=== PATIENT | female | born 2000 | race Caucasian/White ===

== ENCOUNTER 2020-05-22 17:11 | Emergency (ER) | payer SELFPAY ==
[2020-05-22 17:25] VITALS: BP 112/76; PULSE 98; RESP 16; TEMP 36.4; O2SAT 99; BMI 21.9
[2020-05-22 18:00] LABS: Add Urine Microscopic? NO
[2020-05-22 18:15] LABS: Bilirubin Urine Neg (Negative); Blood Urine Neg (Negative); Glucose Urine UA Norm (Normal); Ketones Urine Negative (Negative); Leukocyte Esterase Urine Negative (Negative); Nitrate Urine Negative (Negative); Protein Urine Neg (Negative); Urine Appearance Clear (CLEAR); Urine Color Yellow (Yellow); Urobilinogen Urine Norm (Negative); pH Urine 7 (5-7)
[2020-05-22 18:35] LABS: Basophils # 0.1 10^3/uL (0.0-0.1); Basophils % 0.6 %; Eosinophils # 0.2 10^3/uL (0.0-0.8); Hematocrit 37.9 % (37.0-47.0); Hemoglobin 12.1 g/dL (11.5-15.3); Lymphocytes # 2.5 10^3/uL (1.5-6.5); Lymphocytes % 25.7 %; Mean Corpuscular HGB Conc 31.9 g/dL (30.0-36.0); Mean Corpuscular Hemoglobin 30.2 pg (28.0-34.0); Mean Corpuscular Volume 94.5 fL (81-99); Mean Platelet Volume 10.2 fL (7.4-10.4); Monocytes # 0.8 10^3/uL (0.2-0.9); Monocytes % 8.4 %; Nucleated Red Blood Cells % 0 %; Platelet Count 297 10^3/cmm (130-400); Red Blood Count 4.01 10^6/uL (4.1-5.3); Red Cell Distribution Width 13.8 % (12.1-15.1); White Blood Count 9.7 10^3/uL (4.5-13.0)
[2020-05-22 18:53] LABS: Alanine Aminotransferase 18 U/L (0-33); Albumin Level 4.5 g/dL (3.5-5.2); Alkaline Phosphatase 72 IU/L (35-105); Anion Gap 12.7 (5-19); Aspartate Amino Transferase 18 U/L (0-32); Blood Urea Nitrogen 8 mg/dL (6-20); Calcium 9.2 mg/dL (8.5-10.5); Carbon Dioxide 26 mmol/L (22-29); Chloride 105 mmol/L (98-107); Globulin 2.6 g/dL (1.3-4.6); Glomerular Filtration Rate 127.5 mL/min (90-130); Glucose 110 mg/dL (65-115); HCG, Serum Qual Negative (Negative); Lipase 25 U/L (13-60); Osmolality Calculated 289 mOsm/kg (285-295); Potassium 3.7 mmol/L (3.5-5.1); Sodium 140 mmol/L (136-145); Total Bilirubin 0.2 mg/dL (0.15-1.2); Total Protein 7.1 g/dL (6.6-8.7)
[2020-05-22 18:56] VITALS: BP 118/67; PULSE 87; RESP 18; O2SAT 98
[2020-05-22] MEDS: sodium chloride 0.9% 1,000 ML 999 ML IV (18:58)
[2020-05-22] MEDS: lidocaine 2% viscous 15 ML, aluminum-mag hydrox-simethicon 30 ML, sucralfate oral liq 1 GM PO (18:58)
[2020-05-22] MEDS: pantoprazole 40 mg SDV IVP (18:58)
[2020-05-22] MEDS: ondansetron 2 mg/ML SDV 2 mL 4 MG IVP (18:58)
--- NOTE | 2020-05-22 19:09 | CTR_ITS ---
PROCEDURE INFORMATION: Exam: CT Abdomen And Pelvis With Contrast Exam date and time: 05/22/2020 7:29 PM Age: 19 years old Clinical indication: Nausea and vomiting; Prior surgery; Surgery date: 6+ months; Surgery type: Gb; Patient HX: Epigastric pain w n/v - hematemesis TECHNIQUE: Imaging protocol: Computed tomography of the abdomen and pelvis with intravenous contrast. Sagittal and coronal reformatted images were created and reviewed. Radiation optimization: All CT scans at this facility use at least one of these dose optimization techniques: automated exposure control; mA and/or kV adjustment per patient size (includes targeted exams where dose is matched to clinical indication); or iterative reconstruction. Contrast material: OMNI 300; Contrast volume: 75 ml; Contrast route: INTRAVENOUS (IV); COMPARISON: No relevant prior studies available. RADIATION DOSE METRICS: Total DLP (mGy-cm): 266.12 FINDINGS: Lungs: Visualized lungs are clear. Pleural space: No pleural effusion. Heart: Visualized portions of the heart are unremarkable. Liver: The liver is unremarkable. Gallbladder and bile ducts: Patient has had a previous cholecystectomy. No biliary ductal dilatation. Pancreas: The pancreas is unremarkable. No pancreatic ductal dilatation. Spleen: The spleen is unremarkable. Adrenals: The right and left adrenal glands are unremarkable. Kidneys and ureters: The right and left kidneys are unremarkable. The right and left ureters are unremarkable. Stomach and bowel: Fluid within the small bowel without evidence of bowel wall thickening. No acute abnormality in the colon. Appendix: The appendix is visualized and is unremarkable. No findings to suggest acute appendicitis. Intraperitoneal space: Small amount of free fluid in the pelvis. No free intraperitoneal air. No loculated fluid collections to suggest an abscess. Vasculature: No evidence for aortic aneurysm or aortic dissection. Hepatic veins are poorly opacified and not well-visualized. Portal veins, splenic vein, and SMV are patent. 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 Lymph nodes: No lymphadenopathy. Urinary bladder: Diffuse, mild wall thickening of the bladder. Reproductive: The uterus, right ovary, and left ovary are unremarkable. Bones/joints: No acute fracture. Soft tissues: The extra-abdominal soft tissues are unremarkable. Patient has bilateral nipple piercings. CT/CT abdomen pelvis w con* [id number] IMPRESSION: 1. Fluid within the small bowel without evidence of bowel wall thickening. This may reflect viral gastroenteritis in the appropriate clinical situation. 2. Small amount of free fluid in the pelvis. 3. Diffuse, mild wall thickening of the bladder. In the correct clinical setting, this may suggest cystitis. Recommend correlation with laboratory findings. 4. Incidental/nonacute findings are listed in the report. Radiation Dose CTDIVOL = (mGy): DLP = 266.12 (mGy-cm)
[2020-05-22] MEDS: iohexol 300 mg/mL 100 mL Btl IV (19:38)
[2020-05-22 19:56] VITALS: BP 124/78; PULSE 70; RESP 18; O2SAT 99
[2020-05-22 20:00] VITALS: BP 109/80; PULSE 88; RESP 18; O2SAT 100
--- NOTE | 2020-05-22 20:37 | ED_ITS ---
HPI - Nausea/Vomiting/Diarrhea General: Chief complaint: Nausea/Vomiting/Diarrhea Stated complaint: vomiting blood Time Seen by Provider: 05/22/20 17:45 Source: patient Mode of arrival: ambulatory History of Present Illness: HPI Narrative: 19-year-old female patient with a prior history of gastritis and stomach ulcers presents to the emergency department with complaints of hematemesis. Symptoms started earlier today with epigastric abdominal pain. She says she occasionally takes NSAIDs. She is not on any medications for gastritis currently. She denies dizziness, or presyncope. No blood in her stool. MD elicited complaint: nausea and vomiting Onset (ago): hour(s) (8) Description of vomiting: food contents and bloody Associated nausea: No Associated abdominal pain: Yes Location of pain: Epigastric Severity: moderate Quality: other (burning) Exacerbating factors: none Associated symtoms: Denies altered mental status, anxiety, bloating, change in vision, chest pain, cough, diaphoresis, decreased urine output, dizziness, dysuria, epistaxis, fatigue, fecal incontinence, fevers/chills, headache(s), anorexia, malaise, myalgias, nausea, numbness, palpitations, rash, short of breath, syncope, tenesmus, tinnitus or weakness Review of Systems General: Reports: 10 or more systems reviewed and unremarkable except in HPI and below Const: Denies: fatigue, malaise or diaphoresis Eyes: Denies: change in vision ENMT: Denies: tinnitus or epistaxis Card: Denies: chest pain, palpitations or syncope Resp: Denies: dyspnea, productive cough or non-productive cough GI: Denies: nausea, bloating or fecal incontinence : Denies: dysuria Musc: Denies: neck pain, back pain or extremity swelling Skin/Breast: Denies: rash, pruritus or erythema Neuro: Denies: headache(s) or dizziness Psych: Denies: anxiety Endo: Denies: polyuria, polydipsia or tired all the time PFSH ED PFSH: Social History (Reviewed 05/22/20 @ 23:06 by Fouzia Bishop MD, [facility] [place]) Smoking and tobacco status: current every day smoker cigarettes Packs smoked per day: 1 Alcohol intake: current Alcohol intake frequency: holidays/special occasions only Substance/Drug Use: never Female Reproductive History: Date of last menstrual period: 05/21/20 Physical Exam Const: COMMON NORMALS: no acute distress, average body habitus, patient oriented x3, no limitations, healthy appearing, alert and well nourished EXAM LIMITATIONS: no altered mental status HENMT: COMMON NORMALS: normocephalic, atraumatic and moist oral mucous membranes HEAD & SCALP: normocephalic and atraumatic Neck/C-Spine: COMMON NORMALS: no meningeal signs and no JVD Resp: COMMON NORMALS: normal respiratory effort, No retractions, No use of accessory muscles, clear to auscultation bilaterally and percussion normal AUSCULTATION: clear to auscultation bilaterally PERCUSSION: percussion normal Cardio: COMMON NORMALS: no JVD, regular rate, regular rhythm, S1 normal heart sound present, S2 normal heart sound present, No gallops present (Cardio), No clicks present (Cardio), No murmurs present (Cardio), No rub (Cardio) and Peripheral pulses 2+ throughout RATE: regular rate RHYTHM: regular rhythm HEART SOUNDS: S1 normal heart sound present and S2 normal heart sound present PERIPHERAL PULSES: Peripheral pulses 2+ throughout GI: COMMON NORMALS: Normal to inspection, nondistended, normoactive bowel sounds present, Soft to palpation, No hepatosplenomegaly present, no masses and no bruits PALPATION: Yes Soft to palpation, Yes Tenderness to palpation present (GI) (epigastric.) and Yes No hepatosplenomegaly present Extremity: COMMON NORMALS: normal to inspection, full ROM, capillary refill normal, no calf tenderness and no pedal edema Neuro: COMMON NORMALS: patient oriented x3 SENSORIUM/ORIENTATION: Yes alert MENINGEAL SIGNS: Yes no meningeal signs Skin: COMMON NORMALS: no rashes or lesions noted, no wounds, turgor normal, no jaundice, no petechiae and no mottling GENERAL SKIN EXAM: no rashes or lesions noted and turgor normal Course Reevaluation(s): Reevaluation #1: Discussed her labs and imaging findings with her. Negative for acute findings. Hemoglobin is stable and normal. Since she has been of antacids will prescribe antacids for her while she follows up with a colored leather setter. Patient states that she is no longer lives in [place] and lives in [place] now so she would follow-up with a provider in [place]. She voiced understanding and is in agreement with my plan. Time: 21:08 Vital Signs: Vital signs: Vital Signs Temperature 97.5 F L 05/22/20 17:25 Pulse Rate 88 05/22/20 22:18 Respiratory Rate 18 05/22/20 22:18 Blood Pressure 112/74 05/22/20 22:18 Pulse Oximetry 100 05/22/20 22:18 MDM - Nausea/Vomiting/Diarrhea MDM Narrative: Medical decision making narrative: Patient with symptoms compatible with hemorrhagic gastritis. Patient had only one episode of vomiting in the emergency department, hemoglobin stable, labs unremarkable, CT scan unremarkable. She is discharged home with medications for gastritis/stomach ulcers. She will follow-up with her primary care provider and gastroen terologist. Medical Records: Attestation: I reviewed the patient's medical records. Lab Data: Attestation: I reviewed the patient's lab results. Labs: Lab Results 05/22/20 05/22/20 05/22/20 Range/Units 17:46 18:20 18:20 WBC 9.7 (4.5-13.0) 10^3/ uL RBC 4.01 L (4.1-5.3) 10^6/u L Hgb 12.1 (11.5-15.3) g/dL Hct 37.9 (37.0-47.0) % MCV 94.5 (81-99) fL MCH 30.2 (28.0-34.0) pg MCHC 31.9 (30.0-36.0) g/dL RDW 13.8 (12.1-15.1) % Plt Count 297 (130-400) 10^3/c mm MPV 10.2 (7.4-10.4) fL Neut % (Auto) 63.0 % Lymph % (Auto) 25.7 % [place] % (Auto) 8.4 % Eos % (Auto) 2.0 % Baso % (Auto) 0.6 % Neut # (Auto) 6.10 (1.8-8.0) 10^3/u L Lymph # (Auto) 2.5 (1.5-6.5) 10^3/u L [place] # (Auto) 0.8 (0.2-0.9) 10^3/u L Eos # (Auto) 0.2 (0.0-0.8) 10^3/u L Baso # (Auto) 0.1 (0.0-0.1) 10^3/u L Nucleated RBC % (a uto) 0 % Nucleated RBCs # 0.0 /100WBC Sodium 140 (136-145) mmol/L Potassium 3.7 (3.5-5.1) mmol/L Chloride 105 (98-107) mmol/L Carbon Dioxide 26 (22-29) mmol/L Anion Gap 12.7 (5-19) BUN 8 (6-20) mg/dL Creatinine 0.6 (0.5-0.9) mg/dL GFR Calculation 127.5 (90-130) mL/min Glucose 110 (65-115) mg/dL Calculated Osmolal ity 289 (285-295) mOsm/k g Calcium 9.2 (8.5-10.5) mg/dL Total Bilirubin 0.2 (0.15-1.2) mg/dL AST 18 (0-32) U/L ALT 18 (0-33) U/L Alkaline Phosphata se 72 (35-105) IU/L Total Protein 7.1 (6.6-8.7) g/dL Albumin 4.5 (3.5-5.2) g/dL Globulin 2.6 (1.3-4.6) g/dL Lipase 25 (13-60) U/L HCG, Qual (Negative) Urine Color Yellow (Yellow) Urine Appearance Clear (CLEAR) Urine pH 7 (5-7) Ur Specific Gravit y 1.010 (1.005-1.030) Urine Protein Neg (Negative) Urine Glucose (UA) Norm (Normal) Urine Ketones Negative (Negative) Urine Blood Neg (Negative) Urine Nitrate Negative (Negative) Urine Bilirubin Neg (Negative) Urine Urobilinogen Norm (Negative) mg/dL Ur Leukocyte Indira ase Negative (Negative) 05/22/20 Range/Units 18:20 WBC (4.5-13.0) 10^3/ uL RBC (4.1-5.3) 10^6/u L Hgb (11.5-15.3) g/dL Hct (37.0-47.0) % MCV (81-99) fL MCH (28.0-34.0) pg MCHC (30.0-36.0) g/dL RDW (12.1-15.1) % Plt Count (130-400) 10^3/c mm MPV (7.4-10.4) fL Neut % (Auto) % Lymph % (Auto) % [place] % (Auto) % Eos % (Auto) % Baso % (Auto) % Neut # (Auto) (1.8-8.0) 10^3/u L Lymph # (Auto) (1.5-6.5) 10^3/u L [place] # (Auto) (0.2-0.9) 10^3/u L Eos # (Auto) (0.0-0.8) 10^3/u L Baso # (Auto) (0.0-0.1) 10^3/u L Nucleated RBC % (a uto) % Nucleated RBCs # /100WBC Sodium (136-145) mmol/L Potassium (3.5-5.1) mmol/L Chloride (98-107) mmol/L Carbon Dioxide (22-29) mmol/L Anion Gap (5-19) BUN (6-20) mg/dL Creatinine (0.5-0.9) mg/dL GFR Calculation (90-130) mL/min Glucose (65-115) mg/dL Calculated Osmolal ity (285-295) mOsm/k g Calcium (8.5-10.5) mg/dL Total Bilirubin (0.15-1.2) mg/dL AST (0-32) U/L ALT (0-33) U/L Alkaline Phosphata se (35-105) IU/L Total Protein (6.6-8.7) g/dL Albumin (3.5-5.2) g/dL Globulin (1.3-4.6) g/dL Lipase (13-60) U/L HCG, Qual Negative (Negative) Urine Color (Yellow) Urine Appearance (CLEAR) Urine pH (5-7) Ur Specific Gravit y (1.005-1.030) Urine Protein (Negative) Urine Glucose (UA) (Normal) Urine Ketones (Negative) Urine Blood (Negative) Urine Nitrate (Negative) Urine Bilirubin (Negative) Urine Urobilinogen (Negative) mg/dL Ur Leukocyte Indira ase (Negative) Imaging Data^: CT Abd/Pel: Attestation: I personally reviewed and interpreted this imaging study as fol lows: Radiologist's impression: [facility] [address] [place] [address] CT Scan Report Signed Patient: Js Hutchinson #: [id number] : 2000Acct#:[id number] Age/Sex: 19 / FADM Date: 05/22/20 Loc: ERRoom/Bed: Attending Dr: Ordering Provider/Ordering MD: Fouzia Bishop MD, [facility] [place] Date of Service: 05/22/20 Procedure(s): CT abdomen pelvis w con* [id number] Accession Number(s): [id number] Report Number: [id number] PROCEDURE INFORMATION: Exam: CT Abdomen And Pelvis With Contrast Exam date and time: 05/22/2020 7:29 PM Age: 19 years old Clinical indication: Nausea and vomiting; Prior surgery; Surgery date: 6+ months; Surgery type: Gb; Patient HX: Epigastric pain w n/v - hematemesis TECHNIQUE: Imaging protocol: Computed tomography of the abdomen and pelvis with intravenous contrast. Sagittal and coronal reformatted images were created and reviewed. Radiation optimization: All CT scans at this facility use at least one of these dose optimization techniques: automated exposure control; mA and/or kV adjustment per patient size (includes targeted exams where dose is matched to clinical indication); or iterative reconstruction. Contrast material: OMNI 300; Contrast volume: 75 ml; Contrast route: INTRAVENOUS (IV); COMPARISON: No relevant prior studies available. RADIATION DOSE METRICS: Total DLP (mGy-cm): 266.12 FINDINGS: Lungs: Visualized lungs are clear. Pleural space: No pleural effusion. Heart: Visualized portions of the heart are unremarkable. Liver: The liver is unremarkable. Gallbladder and bile ducts: Patient has had a previous cholecystectomy. No biliary ductal dilatation. Pancreas: The pancreas is unremarkable. No pancreatic ductal dilatation. Spleen: The spleen is unremarkable. Adrenals: The right and left adrenal glands are unremarkable. Kidneys and ureters: The right and left kidneys are unremarkable. The right and left ureters are unremarkable. Stomach and bowel: Fluid within the small bowel without evidence of bowel wall thickening. No acute abnormality in the colon. Appendix: The appendix is visualized and is unremarkable. No findings to suggest acute appendicitis. Intraperitoneal space: Small amount of free fluid in the pelvis. No free intraperitoneal air. No loculated fluid collections to suggest an abscess. Vasculature: No evidence for aortic aneurysm or aortic dissection. Hepatic veins are poorly opacified and not well-visualized. Portal veins, splenic vein, and SMV are patent. 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 Lymph nodes: No lymphadenopathy. Urinary bladder: Diffuse, mild wall thickening of the bladder. Reproductive: The uterus, right ovary, and left ovary are unremarkable. Bones/joints: No acute fracture. Soft tissues: The extra-abdominal soft tissues are unremarkable. Patient has bilateral nipple piercings. CT/CT abdomen pelvis w con* [id number] IMPRESSION: 1. Fluid within the small bowel without evidence of bowel wall thickening. This may reflect viral gastroenteritis in the appropriate clinical situation. 2. Small amount of free fluid in the pelvis. 3. Diffuse, mild wall thickening of the bladder. In the correct clinical setting, this may suggest cystitis. Recommend correlation with laboratory findings. 4. Incidental/nonacute findings are listed in the report. Radiation Dose CTDIVOL = (mGy): DLP = 266.12 (mGy-cm) Dictated By:Estela Nesbitt MD Signed By:Estela Nesbittigned Date/Time:05/22/202012 DD/ 10 Discharge Plan Discharge Patient Disposition: Home Clinical Impression: Gastritis Qualifiers: Gastritis type: unspecified gastritis Chronicity: acute Gastritis bleeding: with bleeding Qualified Code(s): K29.01 - Acute gastritis with bleeding Condition: Stable Prescriptions: New omeprazole 40 mg capsule,delayed release(DR/EC) 40 mg PO DAILY 28 Days RF: 0 Pepcid 40 mg tablet 40 mg PO BID 30 Days Qty: 60 RF: 0 sucralfate 100 mg/mL suspension 1 gm PO BID 28 Days Qty: 560 RF: 0 Zofran 4 mg tablet 4 mg PO Q8H PRN (Reason: nausea and vomiting) 14 Days Qty: 30 RF: 0 Discharge Orders: Discharge Order (Routine); Ordered 05/22/20 Ordered By: Fouzia Bishop Discharge Activity: Increase activity as tolerated Patient Instructions: Gastritis (ED), Diet for Ulcers and Gastritis (ED) Activity Restrictions/Additional Instructions: Return for any new or worsening symptoms. Follow-up with your primary care provider within 3 days. Call the office of a surgeon or colored leather setter when you get back home to schedule an appointment to be seen as soon as possible. Take the medications as prescribed. Stay away from all NSAIDs including ibuprofen, naproxen, Aleve, Advil and similar medications. Avoid spicy foods. Avoid cigarettes. Avoid caffeine products. Discharge Date/Time: 05/22/20 22:20 Coding Level of Care Code ED Senior Procurement Manager for Chg Fwd Exam Comprehensive
[2020-05-22 22:00] VITALS: BP 112/74; PULSE 88; RESP 18; O2SAT 100
[2020-05-22 22:18] VITALS: BP 112/74; PULSE 88; RESP 18; O2SAT 100
== END 2020-05-22 22:20 | disposition home or self-care (01) ==
PROVIDERS: Family Medicine; Emergency Provider Family Medicine
DX: K29.01 Acute gastritis with bleeding (principal); F17.210 Nicotine dependence, cigarettes, uncomplicated
CPT/HCPCS: 12345; 36415; 74177; 80053; 81003; 83690; 84703; 85025; 96361; 96374; 96375; 99283; C9113; J2405; J7030; Q9967

== ENCOUNTER 2021-02-04 23:13 | Emergency (ER) | payer SELFPAY ==
[2021-02-04 23:22] VITALS: BP 123/78; PULSE 74; RESP 18; TEMP 36.4; O2SAT 95; BMI 21.9
--- NOTE | 2021-02-05 00:04 | XRR_ITS ---
PROCEDURE INFORMATION: Exam: XR Chest Exam date and time: 02/05/2021 12:04 AM Age: 20 years old Clinical indication: Pain; Chest pressure; Additional info: Cp TECHNIQUE: Imaging protocol: XR of the chest. Views: 1 view. COMPARISON: No relevant prior studies available. FINDINGS: Lungs: Unremarkable. No consolidation. Pleural spaces: Unremarkable. No pleural effusion. No pneumothorax. Heart/Mediastinum: Unremarkable. No cardiomegaly. Bones/joints: Unremarkable. XR/XR chest 1V portable [id number] IMPRESSION: No acute findings.
--- NOTE | 2021-02-05 00:04 | ECG_ITS ---
[facility] Test Date: 2021-02-04 Pat Name: Reba Hutchinson Department: Room: Gender: Female Retail Store Associate: : 2000 Requested By: Carmela Dobson Order Number: [id number] Barb MD: Becky Mejia M.D. Measurements Intervals [place] Rate: 70 P: 63 CT: 124 QRS: 100 QRSD: 91 T: 57 QT: 379 QTc: 410 Interpretive Statements SINUS RHYTHM BORDERLINE RIGHT AXIS DEVIATION [QRS AXIS > 90] No previous ECG available for comparison Electronically Signed On 02-05-2021 21:09:01 CDT by Becky Mejia M.D. [id number] f
--- NOTE | 2021-02-05 00:30 | ED_ITS ---
HPI - Chest Pain General: Chief Complaint: Chest Pain Stated Complaint: Chest Hurts Time Seen by Provider: 02/05/21 00:21 Source: patient Mode of arrival: ambulatory Limitations: no limitations History of Present Illness: HPI narrative: 20-year-old female states that she was at the [facility] today outside walking and heat states she felt she got overheated. States that she felt weak and was having some chest pains. States she been having episodic chest pain for months actually has an event monitor currently is being followed by a physician in [place] where she lives. She states since getting out of heat she does feel improved. She has some nausea no vomiting. Denies any headache. Denies any chest pain currently. Associated symptoms: Deny abdominal pain, dyspnea, fever(s), nausea or vomiting Review of Systems Const: Denies: fever(s), chills, body aches or change in appetite Eyes: Denies: blurry vision or eye discomfort ENMT: Denies: throat pain or dental pain Card: Reports: chest pain Resp: Denies: dyspnea GI: Denies: abdominal pain, nausea, vomiting or diarrhea : Denies: dysuria Musc: Denies: neck pain or back pain Skin/Breast: Denies: rash Neuro: Denies: headache(s) Psych: Denies: depression Glenn/Lymph: Denies: easy bruising All/Imm: Denies: urticaria PFSH ED PFSH: Social History Smoking and tobacco status: current every day smoker cigarettes Packs smoked per day: 1 Alcohol intake: current Alcohol intake frequency: holidays/special occasions only Female Reproductive History: Date of last menstrual period: 01/27/21 Physical Exam Const: COMMON NORMALS: no acute distress, patient oriented x3 and healthy appearing HENMT: COMMON NORMALS: normocephalic and atraumatic HEAD & SCALP: normocephalic and atraumatic Eye: COMMON NORMALS: Equal, round and reactive pupils present and EOMs intact bilaterally PUPIL: Yes Equal, round and reactive pupils present Neck/C-Spine: COMMON NORMALS: full ROM and supple Chest: COMMONS NORMALS: normal inspection of the chest and normal palpation of entire chest wall Resp: COMMON NORMALS: normal respiratory effort, No retractions, No use of accessory muscles and clear to auscultation bilaterally AUSCULTATION: clear to auscultation bilaterally Cardio: COMMON NORMALS: regular rate, regular rhythm and No murmurs present (Cardio) RATE: regular rate RHYTHM: regular rhythm GI: COMMON NORMALS: Normal to inspection, nondistended, normoactive bowel sounds present, Soft to palpation, non-tender and no masses PALPATION: Yes Soft to palpation Extremity: COMMON NORMALS: normal to inspection and full ROM Neuro: COMMON NORMALS: patient oriented x3, moves all extremities and no focal motor deficits Psych: COMMON NORMALS: mental status grossly normal, Normal thought process present and cooperative THOUGHT PROCESS: Normal thought process present Skin: COMMON NORMALS: no rashes or lesions noted and no wounds GENERAL SKIN EXAM: no rashes or lesions noted Course Vital Signs: Vital signs: Vital Signs Temperature 97.6 F 02/04/21 23:22 Pulse Rate 69 02/05/21 00:50 Respiratory Rate 18 02/05/21 00:50 Blood Pressure 160/92 02/05/21 00:50 Pulse Oximetry 100 02/05/21 00:50 MDM - Chest Pain MDM Narrative: Medical decision making narrative: Patient presents here with chest pain is very atypical in nature. When she got overheated today. She feels much improved here and blood work EKG and x-ray are all normal. She is to follow-up with her PCP and return if worsening. Lab Data: Labs: Lab Results 02/05/21 02/05/21 Range/Units 00:50 00:50 WBC 10.6 H (4.0-10.0) 10^3/ uL RBC 3.86 L (4.1-5.3) 10^6/u L Hgb 11.7 (11.5-15.3) g/dL Hct 35.4 L (37.0-47.0) % MCV 91.7 (81-99) fL MCH 30.3 (28.0-34.0) pg MCHC 33.1 (30.0-36.0) g/dL RDW 13.3 (12.1-15.1) % Plt Count 247 (130-400) 10^3/c mm MPV 10.4 (7.4-10.4) fL Neut % (Auto) 59.7 % Lymph % (Auto) 28.6 % [place] % (Auto) 9.4 % Eos % (Auto) 1.5 % Baso % (Auto) 0.7 % Neut # (Auto) 6.32 (1.8-7.7) 10^3/u L Lymph # (Auto) 3.0 (0.8-4.8) 10^3/u L [place] # (Auto) 1.0 H (0.2-0.9) 10^3/u L Eos # (Auto) 0.2 (0.0-0.8) 10^3/u L Baso # (Auto) 0.1 (0.0-0.1) 10^3/u L Nucleated RBC % (a uto) 0 % Nucleated RBCs # 0.0 /100WBC Sodium 140 (136-145) mmol/L Potassium 4.0 (3.5-5.1) mmol/L Chloride 104 (98-107) mmol/L Carbon Dioxide 26 (22-29) mmol/L Anion Gap 14.0 (5-19) BUN 13 (6-20) mg/dL Creatinine 0.7 (0.5-0.9) mg/dL GFR Calculation 105.6 (90-130) mL/min Glucose 103 (65-115) mg/dL Calculated Osmolal ity 290 (285-295) mOsm/k g Calcium 9.2 (8.5-10.5) mg/dL Total Bilirubin 0.3 (0.15-1.2) mg/dL AST 20 (0-32) U/L ALT 16 (0-33) U/L Alkaline Phosphata se 60 (35-105) IU/L Total Protein 7.1 (6.6-8.7) g/dL Albumin 4.4 (3.5-5.2) g/dL Globulin 2.7 (1.3-4.6) g/dL Imaging Data^: CXR: Attestation: I personally reviewed and interpreted this imaging study as follows: My impression: no acute abnormality EKG Data^: EKG 1: Attestation: I personally reviewed and interpreted this EKG as follows: EKG interpretation date: 02/05/21 EKG interpretation time: 01:03 Interpretation: nsr hr 62 with no s tor t wave abnormalities qrs 87 qtc 394 Discharge Plan Discharge Patient Disposition: Home Clinical Impression: Chest pain Qualifiers: Chest pain type: unspecified Qualified Code(s): R07.9 - Chest pain, unspecified Condition: Stable Discharge Orders: Discharge ED (Routine); Ordered 02/05/21 Ordered By: Carmela Dobson Discharge Diet: Advance as tolerated Discharge Activity: Resume usual activity Patient Instructions: Chest Pain (ED) Coding Level of Care Code ED Water Resource Specialist for Margaretg Fwd Exam Comprehensive
[2021-02-05 00:50] VITALS: BP 160/92; PULSE 69; RESP 18; O2SAT 100
[2021-02-05 00:53] LABS: Basophils # 0.1 10^3/uL (0.0-0.1); Basophils % 0.7 %; Eosinophils # 0.2 10^3/uL (0.0-0.8); Eosinophils % 1.5 %; Hematocrit 35.4 % (37.0-47.0); Hemoglobin 11.7 g/dL (11.5-15.3); Lymphocytes % 28.6 %; Mean Corpuscular HGB Conc 33.1 g/dL (30.0-36.0); Mean Corpuscular Hemoglobin 30.3 pg (28.0-34.0); Mean Corpuscular Volume 91.7 fL (81-99); Mean Platelet Volume 10.4 fL (7.4-10.4); Monocytes % 9.4 %; Neutrophils # 6.32 10^3/uL (1.8-7.7); Neutrophils % 59.7 %; Nucleated Red Blood Cells % 0 %; Platelet Count 247 10^3/cmm (130-400); Red Blood Count 3.86 10^6/uL (4.1-5.3); Red Cell Distribution Width 13.3 % (12.1-15.1); White Blood Count 10.6 10^3/uL (4.0-10.0)
[2021-02-05] MEDS: sodium chloride 0.9% 1,000 ML 999 ML IV (00:55)
[2021-02-05 01:13] LABS: Alanine Aminotransferase 16 U/L (0-33); Albumin Level 4.4 g/dL (3.5-5.2); Alkaline Phosphatase 60 IU/L (35-105); Aspartate Amino Transferase 20 U/L (0-32); Blood Urea Nitrogen 13 mg/dL (6-20); Calcium 9.2 mg/dL (8.5-10.5); Carbon Dioxide 26 mmol/L (22-29); Chloride 104 mmol/L (98-107); Globulin 2.7 g/dL (1.3-4.6); Glomerular Filtration Rate 105.6 mL/min (90-130); Glucose 103 mg/dL (65-115); Osmolality Calculated 290 mOsm/kg (285-295); Sodium 140 mmol/L (136-145); Total Bilirubin 0.3 mg/dL (0.15-1.2); Total Protein 7.1 g/dL (6.6-8.7)
[2021-02-05 01:32] VITALS: BP 110/73; PULSE 65; RESP 18; O2SAT 98
== END 2021-02-05 01:34 | disposition home or self-care (01) ==
PROVIDERS: Emergency Provider Emergency Medicine
DX: R07.9 Chest pain, unspecified (principal); F17.210 Nicotine dependence, cigarettes, uncomplicated
CPT/HCPCS: 71045; 80053; 85025; 93005; 96360; 99284; J7030